=== PATIENT | female | born 1990 | race Two or more races ===

== ENCOUNTER 2017-09-05 19:03 | Inpatient (IN) | payer OTHER ==
[~2017-09-05] VITALS: Ht 160 cm; Wt 56.2 kg
[2017-09-08] MEDS ORDERED: KEFLEX500 MG PO (14:03)
== END 2017-09-08 14:15 | disposition home or self-care (01) | DRG 781 ==
LOC: LDR 19:03 → OB/GYN 09-06 18:06
PROC: 4A1HXCZ Monitoring of Products of Conception, Cardiac Rate, External Approach (ICD-10-PCS; principal; 2017-09-05)
DX: O23.592 Infection of other part of genital tract in pregnancy, second trimester (principal); B96.89 Other specified bacterial agents as the cause of diseases classified elsewhere; B95.2 Enterococcus as the cause of diseases classified elsewhere; B95.4 Other streptococcus as the cause of diseases classified elsewhere; Z3A.23 23 weeks gestation of pregnancy

== ENCOUNTER → 2017-09-05 | Emergency (ER) | payer OTHER ==
[~2017-09-05] VITALS: Ht 160 cm; Wt 56.2 kg
[~2017-09-05] MED LIST: CLEOCIN100 MG VAG; CLOTRIMAZOLE15 GM TOP; PRENATABS FA T1 EACH
== END | disposition still patient (30) ==
LOC: ER 15:32
DX: O23.592 Infection of other part of genital tract in pregnancy, second trimester (principal)

== ENCOUNTER 2024-12-21 10:27 | Outpatient (CLI) | payer OTHER ==
[~2024-12-21 10:27] MED LIST changes: +KEFLEX500 MG PO
== END 2024-12-21 10:34 | disposition home or self-care (01) ==
LOC: SONOGRAMA 10:27
PROVIDERS: ATTEND Pathology Anatomic Pathology & Clinical Pathology
DX: D44.0 Neoplasm of uncertain behavior of thyroid gland (principal); D34 Benign neoplasm of thyroid gland; E06.3 Autoimmune thyroiditis; C73 Malignant neoplasm of thyroid gland

== ENCOUNTER 2025-01-05 08:30 | Inpatient (IN) | payer OTHER ==
[~2025-01-05] VITALS: Ht 162.6 cm; Wt 55.3 kg
[2025-01-05 10:25] LABS: BASO % 1.0 % (0.1-1.2); EOS # 0.09 (0.04-0.54); EOS % 1.7 % (0.7-7.0); LYMPH # 1.66 (1.18-3.74); LYMPH % 31.9 % (19.3-53.1); MEAN PLATELET VOLUME 9.50 fl (9.4-12.4); MONO # 0.36 (0.24-0.82); MONO % 6.9 % (4.7-12.5); NEUT # 3.02 (1.56-6.13); NEUT % 58.1 % (34.0-71.1); RED CELL DISTRIBUTION WIDTH 11.9 % (11.6-14.4)
[2025-01-05 10:29] VITALS: BP 117/78
[2025-01-05 10:31] LABS: URINE APPEARANCE Clear; URINE BILIRRUBIN Negative (NEGATIVE); URINE BLOOD Negative; URINE COLOR Yellow; URINE GLUCOSE Negative (NEGATIVE); URINE KETONE Negative (NEGATIVE); URINE LEUKOCYTE Negative; URINE NITRATE Negative; URINE PROTEIN Negative (NEGATIVE); URINE UROBILINOGEN 0.2 E.U./dl
[2025-01-05 10:33] LABS: URINE BACTERIA 19.1 uL (0.0-1933); URINE EPITHELIAL CELLS 3.0 uL (0.0-38.8); URINE RBC 9.0 uL (0.0-20.8)
[2025-01-05 10:55] LABS: INR 1.07
[2025-01-05 11:09] LABS: URINE CAST 0.00 uL (0.0-1.40); URINE WBC 0.7 uL (0.0-23.2)
[2025-01-05 11:30] LABS: ALT/SGPT 20.0 U/L (12-78); AST/SGOT 12.0 U/L (15-37); BILIRUBIN TOTAL 0.86 mg/dL (0.3-1.2); BUN CREA RATIO 14.0 (7.0-25.0); CREATININE SERUM 0.77 mg/dL (0.55-1.02); GFR 84.82; GLOBULINA 3.3 G/DL (2.4-3.5); GLUCOSE FASTING 90.0 mg/dL (65-100); OSMOLALITY SERUM 280.0 MOSM/KG (275-295)
[2025-01-11] MEDS ORDERED: DEXAMETHASONE SODIUM PHOSPHATE 4 MG/ML VIAL ONE (11:53)
[2025-01-11] MEDS ORDERED: ENALAPRILAT DIHYDRATE 1.25 MG/ML VIAL IV PRN (14:45)
[2025-01-11] MEDS ORDERED: ONDANSETRON HCL 2 MG/ML VIAL IV PRN (14:45)
[2025-01-11] MEDS ORDERED: MORPHINE SULFATE 4 MG/ML VIAL IV ONE ×2 (15:20→16:05)
[2025-01-11] MEDS ORDERED: TRAMADOL HCL 50 MG TABLET PO SCH (17:00)
[2025-01-11] MEDS ORDERED: CALCITRIOL 0.5 MCG CAPSULE PO SCH (17:00)
[2025-01-11] MEDS ORDERED: DIPHENHYDRAMINE HCL 75 MG,LIDOCAINE HCL 30 ML,MAG HYDROX/ALUMINUM HYD/SIMETH 30 ML PO SCH (17:00)
[2025-01-11] MEDS ORDERED: Calcium Carbonate 1 TAB TABLET PO SCH ×2 (17:00→21:00)
[2025-01-11] MEDS ORDERED: ACETAMINOPHEN 500 MG GEL..CAP PO SCH (17:00)
[2025-01-11 20:01] VITALS: BP 115/74; O2SAT 95
[2025-01-11] MEDS ORDERED: CYCLOBENZAPRINE HCL 5 MG TABLET PO SCH (21:00)
[2025-01-11] MEDS ORDERED: PANTOPRAZOLE SODIUM 40 MG/VIAL VIAL IV PUSH SCH (21:00)
[2025-01-12] VITALS: BP 102/69; O2SAT 97
[2025-01-12] MEDS ORDERED: LEVOTHYROXINE SODIUM 88 MCG TABLET PO SCH (06:00)
[2025-01-12 08:00] VITALS: BP 115/76; O2SAT 99
[2025-01-12] MEDS ORDERED: CALCIUM CARBONATE/VITAMIN D3 1 TAB TABLET PO NR (08:00)
== END 2025-01-12 12:15 | disposition home or self-care (01) | DRG 627 ==
LOC: SURH 01-11 08:30 → O/R 01-11 10:00 → SURH 01-11 16:02
PROVIDERS: ADMIT Surgery; ATTEND Surgery
PROC: 0GTK0ZZ Resection of Thyroid Gland, Open Approach (ICD-10-PCS; principal; 2025-01-11 15:00)
DX: C73 Malignant neoplasm of thyroid gland (principal)

== ENCOUNTER 2025-01-08 13:41 | Outpatient (CLI) | payer OTHER | END 2025-01-08 13:42 | disposition home or self-care (01) | LOC: SONOGRAMA 13:41 | PROVIDERS: ATTEND Pathology Anatomic Pathology | DX: R59.0 Localized enlarged lymph nodes (principal); C73 Malignant neoplasm of thyroid gland ==